=== PATIENT | male | born 1970 | race Caucasian/White ===

== ENCOUNTER 2017-10-23 14:00 | Emergency (ER) | payer OTHER ==
[~2017-10-23] VITALS: Ht 170.2 cm; Wt 99.8 kg
[2017-10-23] MEDS ORDERED: HUMULIN N100 UNIT/2 (14:25)
[2017-10-23] MEDS ORDERED: NEURONTIN800 MG (14:26)
[2017-10-23] MEDS ORDERED: VISTARIL50 MG (14:26)
== END 2017-10-23 19:08 | disposition home or self-care (01) ==
LOC: ER 14:00
DX: M54.89 Other dorsalgia (principal); E11.9 Type 2 diabetes mellitus without complications